=== PATIENT | female | born 1950 | race American Indian/Alaskan Native ===

== ENCOUNTER 2017-03-21 06:40 | Inpatient (IN) | payer MEDICARE ==
[2017-03-14 09:56] LABS: Basophils % (Auto) 0.5 % (0.0-1.8); Eosinophils % (Auto) 5.7 % (0.0-4.3); Hematocrit 40.3 % (30.3-42.9); Hemoglobin 12.9 gm/dl (10.1-14.3); Mean Corpuscular HGB Conc 32 % (30-34); Mean Corpuscular Volume 81 fl (79-97); Platelet Count 163 K/mm3 (140-440); Red Blood Count 4.99 M/mm3 (3.65-5.03); Red Cell Distribution Width 15.4 % (13.2-15.2); White Blood Count 3.3 K/mm3 (4.5-11.0)
--- NOTE | 2017-03-14 10:01 | Anesthesia Consultation ---
Anesthesia Consult and Med Hx Date of service: 03/14/17 - Airway Anesthetic Teeth Evaluation: Good ROM Head & Neck: Adequate Mental/Hyoid Distance: Adequate Mallampati Class: Class II Intubation Access Assessment: Probably Good - Pulmonary Exam CTA: Yes - Cardiac Exam Cardiac Exam: RRR - Pre-Operative Health Status Proposed Anesthetic Plan: General - Pulmonary Hx Smoking: No (chew tobacco. Stopped 3 yrs ago) Hx Asthma: Yes ("no problems in years") Hx Sleep Apnea: No (STAN PRE SCREEN HIGH RISK) - Cardiovascular System Hx Hypertension: Yes (X 10 YRS) - Central Nervous System CVA: Yes (was told she had a mild stroke in . no residuals) Hx Back Pain: Yes (BACK PAIN TO LEFT LEG BURNING) - Endocrine Hx Liver Disease: No Hx Non-Insulin Dependent Diabetes: Yes (no longer on meds) Hx Thyroid Disease: No - Hematic Hx Anemia: Yes (NOT RECENT) - Other Systems Hx Cancer: No Hx Obesity: Yes
[2017-03-14 10:06] LABS: Mean Corpuscular Hemoglobin 26 pg (28-32)
[2017-03-14 10:14] LABS: Alanine Aminotransferase 9 units/L (7-56); Albumin 3.6 g/dL (3.9-5); Albumin/Globulin Ratio 0.9 %; Alkaline Phosphatase 71 units/L (35-129); Anion Gap 17 mmol/L; Blood Urea Nitrogen 8 mg/dL (7-17); Calcium 8.9 mg/dL (8.4-10.2); Carbon Dioxide 26 mmol/L (22-30); Chloride 103.2 mmol/L (98-107); Glucose 99 mg/dL (65-100); Potassium 3.6 mmol/L (3.6-5.0); Sodium 143 mmol/L (137-145); Total Protein 7.4 g/dL (6.3-8.2)
[~2017-03-21 06:40] MED LIST: PEPCID PO NR; VERSED IV NR
[2017-03-21] MEDS ORDERED: ROBINUL ONE ×2 (07:29)
[2017-03-21] MEDS ORDERED: SUBLIMAZE ONE (07:29)
[2017-03-21] MEDS ORDERED: DIPRIVAN 10 MG/ML IV ONE (07:29)
[2017-03-21] MEDS ORDERED: DECADRON ONE (07:29)
[2017-03-21] MEDS ORDERED: ZEMURON IV ONE (07:29)
[2017-03-21] MEDS ORDERED: NEOSTIGMINE ONE (07:29)
[2017-03-21] MEDS ORDERED: ZOFRAN ONE (07:29)
[2017-03-21] MEDS ORDERED: XYLOCAINE MPF 2% ONE (07:29)
--- NOTE | 2017-03-21 07:43 | Anesthesia Day of Surgery ---
Anesthesia Day of Surgery - Day of Surgery Patient Examined: Yes Patient H&P Reviewed: Yes Patient is NPO: Yes
[2017-03-21] MEDS ORDERED: GELFOAM TP ONE ×2 (08:01→09:05)
[2017-03-21] MEDS: NACL 0.9% 1000 ML 1,000 ML IV SCH (08:05)
--- NOTE | 2017-03-21 08:11 | History and Physical Report ---
History of Present Illness Date of examination: 03/21/17 Date of admission: 03/21/17 06:40 Chief complaint: Low back pain, leg pains with activity Past History Past Medical History: hypertension, hyperlipidemia Medications and Allergies Allergies Allergy/AdvReac Type Severity Reaction Status Date / Time ciprofloxacin [From Cipro] Allergy THROAT Verified 03/12/17 14:25 SWELLING ciprofloxacin HCl Allergy THROAT Verified 03/12/17 14:25 [From Cipro] SWELLING codeine Allergy DEPRESSION Verified 03/12/17 14:25 Home Medications Medication Instructions Recorded Confirmed Last Taken Type Diltiazem [CarDIZEM] 120 mg PO DAILY 03/12/17 03/12/17 Unknown History Hydrochlorothiazide [Hctz] 12.5 mg PO QDAY 03/12/17 03/12/17 Unknown History Meloxicam [Mobic] 7.5 mg PO QDAY 03/12/17 03/12/17 Unknown History Omeprazole 40 mg PO DAILY 03/12/17 03/12/17 Unknown History Potassium Chloride [Klor-Con 10] 10 meq PO DAILY 03/12/17 03/12/17 Unknown History Active Meds: Active Medications Cefazolin Sodium (Ancef/Sterile Water 2 Gm/20 Ml) 2 gm IV PREOP NR Famotidine (Pepcid) 20 mg PO PREOP NR Stop: 03/21/17 23:00 Last Admin: 03/21/17 08:05 Dose: 20 mg Sodium Chloride (Nacl 0.9% 1000 Ml) 1,000 mls @ 75 mls/hr IV DIRECT SAMMY Last Admin: 03/21/17 08:05 Dose: 75 mls/hr Midazolam HCl (Versed) 2 mg IV PREOP NR Stop: 03/21/17 23:00 Review of Systems All systems: negative Exam - Constitutional Vitals: Temp Pulse Resp BP Pulse Ox 98.0 F 84 20 150/100 03/14/17 09:30 03/14/17 09:30 03/14/17 09:30 03/14/17 09:30 - Respiratory Respiratory effort: normal, other (reversal of lumbar lordisis, no neurological deficit.) Results - Labs CBC & Chem 7: 03/14/17 09:30 03/14/17 09:30 Assessment and Plan - Patient Problems (1) Lumbar stenosis with neurogenic claudication Current Visit: Yes Status: Chronic Plan to address problem: Decopmpression L3-S1
[2017-03-21] MEDS ORDERED: ANCEF/STERILE WATER 2 GM/20 ML IV NR (09:00)
[2017-03-21] MEDS ORDERED: DILAUDID ONE (09:02)
[2017-03-21] MEDS ORDERED: NACL 0.9% IR ONE (09:05)
--- NOTE | 2017-03-21 09:10 | Admit Criteria Form ---
Admission Criteria Documentation: AMBULATORY SURGERY EXCEPTION CRITERIA Ambulatory Surgery Exception Criteria ( Place 'X' for any and all applicable criteria): Surgery or procedure performed on ambulatory basis may require inpatient stay for[A] ANY ONE of the following(1)(2)(3)(4)(5)(6)(7)(8)(9): [X] I. A preoperative situation, condition, or finding that warrants inpatient stay as indicated by ANY ONE of the following: [] a) Inpatient care needed because of severity of a disease or condition rather than the surgery (eg, severe cardiac or respiratory disease, severe infection) (15) (16 ) (17) (18) [] b) Emergent procedure (eg, angioplasty for acute ischemia)(19) [] c) Complex surgical approach or situation as indicated by ANY ONE of the following(3): [] i) Open approach needed instead of usual endoscopic, transcatheter, or other less invasive procedure [] ii) Difficult approach because of previous operation [] iii) Airway monitoring required after open neck procedures(20)(21) [] iv) Large mass requiring unusually extensive dissection [] v) Additional complicating feature requiring inpatient care (eg, drain management)(22(23): [X] d) Major surgery in a pt with high anesthetic risk as indicated by ANY ONE of the following (2)(3)(5)(7)(8): [X] i) ASA risk class III or higher (severe systemic disease impairing function) [D] [] ii) Advanced age (eg, older than 85 years)(14)(24) [] iii) Symptomatic heart failure(25) [] iv) Symptomatic asthma or COPD(8)(21) [] v) Morbid obesity with hemodynamic or respiratory problems(20)( 21)(26)(27) [] vi) Obstructive sleep apnea(20)(21) [] vii) Former premature infants who are younger than 60 weeks [] viii) High risk for severe postoperative abnormalities (eg, severe postoperative hypocalcemia after parathyroidectomy for severe hyperparathyroidism)(27)( 28) [] ix) Unstable angina(25) [] e) Drug-related risk requiring inpatient stay as indicated by ANY ONE of the following(5)(10)(14)(32)(33) [] i) Procedure requires discontinuing drugs or other therapy (eg , antiarrhythmic medication, antiseizure medication), which necessitates inpatient observation or treatment.(18)(31) [] ii) Major surgery and high risk drug use as indicated by ANY ONE of the following: [] 1) Active abuse of cocaine or similar drug [] 2) Monoamine oxidase inhibitor use [] 3) Other drug identified as posing risk [] f) Inadequate outpatient care situation as indicated by ANY ONE of the following(5)(10)(14)(32)(33) [] i) Patient lives remote from medical facility and procedure has urgent complication potential, and temporary nearby residence cannot be arranged [] ii) Patient will have postprocedure incapacitation and inadequate assistance at home, or alternative level of care cannot be arranged. [] iii) Patient will have long general anesthesia or procedure side effect resolution time, and competent person to stay with patient on first postoperative night at home or alternative level of care cannot be arranged. []iv) Other inadequate outpatient situation that cannot be handled by other means [] II. A perioperative event, condition, or finding that warrants inpatient stay as indicated by ANY ONE of the following (1)(2)(3): [] a) Inadequate physiologic recovery: cardiovascular, respiratory, or hemodynamic status not normal or near preoperative baseline(18) [] b) Hemodynamic instability [] c) Patient not alert with near normal or baseline mental status [] d) Temperature not normal or as expected and not appropriate for outpatient treatment of condition [] e) Ambulatory or appropriate activity level status not yet achieved post procedure [E](34)(35)(36) [] f) Operative site not appropriate (eg, unexpected or excessive drainage or bleeding) [] g) Postoperative effects not resolved or adequately managed (eg, significant pain or vomiting not appropriate for outpatient or next level of care)(10)(12) [] h) Complicating features requiring inpatient care as indicated by ANY ONE of the following(37): [] i) Severe complications of procedure (eg, bowel injury, airway compromise, vascular injury,severe hemorrhage) [] ii) Extensive (eg, dissection far beyond usual scope of procedure ) or prolonged (eg, 120 minutes beyond usual) surgery needed requiring inpatient postoperative care [] iii) Conversion to an open or complex procedure that requires inpatient care (eg, open vs laparoscopic cholecystectomy, abdominal vs vaginal hysterectomy)(38) [] iv) Comorbid condition or test result identified during or post procedure that requires inpatient care (7) [] v) Malignant hyperthermia(30) [] vi) Other complicating feature requiring inpatient care(22)(23) Inpatient stay may be needed until ALL of the following are present (1)(2)(3)(4) (5)(6)(10)(14)(33)(40): []a) Physiologic recovery: cardiovascular, respiratory, and hemodynamic status normal or near preoperative baseline []b) Hemodynamic stability []c) Patient alert, with near normal or baseline mental status []d) Temperature appropriate: patient afebrile or temperature appropriate for outpt treatment of condition []e) Activity level appropriate: ambulatory or appropriate activity level post procedure []f) Operative site appropriate as indicated by ALL of the following: []i) Site dry or with expected drainage []ii) Any blood noted is as expected for procedure. []g) Postoperative effects resolved or managed as indicated by ALL of the following: []i) Pain management appropriate for outpatient (or next level of) care(10) []ii) Minimal nausea and vomiting: if present, successfully treated with oral medication(12) []iii) Headache, dizziness, or drowsiness (if present) are mild. []h) Voiding status acceptable as indicated by ANY ONE of the following: []i) Voiding spontaneously []ii) No voiding but instructions given for follow-up in 6 to 8 hours []iii) Urinary catheter in place, and instructions given for follow-up []i) Complicating features requiring inpatient care manageable at a lower level of care(37) []j) Comorbid conditions manageable at a lower level of care(37) The original [employer] content created by [employer] has been revised. The portions of the content which have been revised are identified through the use of italic text or in bold, and [facility] [employer] has neither reviewed nor approved the modified material. All other unmodified content is copyright [employer]. Please see references footnoted in the original [employer] edition 2016 Admission Criteria Met: Yes
[2017-03-21] MEDS ORDERED: NACL 0.9% 100 ML ONE (09:48)
[2017-03-21] MEDS ORDERED: NEO SYNEPHRINE ONE (09:48)
[2017-03-21] MEDS ORDERED: TORADOL ONE (09:50)
[2017-03-21] MEDS ORDERED: NACL ONE (09:50)
[2017-03-21] MEDS ORDERED: DEPO-MEDROL ONE (09:50)
[2017-03-21] MEDS ORDERED: MORPHINE ONE (09:51)
[2017-03-21] MEDS ORDERED: MARCAINE-EPI/PF 0.25%-1:200,000 INFILTRATI ONE ×2 (09:52→10:03)
--- NOTE | 2017-03-21 10:02 | Procedure Note ---
Date of procedure: 03/21/17 Pre-op diagnosis: lumbar spondylosis/ stenosis Post-op diagnosis: same Procedure: Decompressive laminectomy/ foraminotomies bilateral, L3-S1 Anesthesia: AMELIAA Surgeon: DONNA ROJAS Estimated blood loss: other (200 ml) Pathology: none Condition: stable Disposition: PACU
[2017-03-21] MEDS ORDERED: MORPHINE IM ONE (10:03)
[2017-03-21] MEDS ORDERED: TORADOL IV ONE (10:03)
[2017-03-21] MEDS ORDERED: DEPO-MEDROL INTRA-ARTI ONE (10:03)
[2017-03-21] MEDS ORDERED: DILAUDID IV PRN (10:32)
[2017-03-21] MEDS ORDERED: ZOFRAN IV PRN (10:32)
[2017-03-21] MEDS ORDERED: PERCOCET 5/325 PO PRN ×2 (11:10→11:12)
[2017-03-21] MEDS ORDERED: AMBIEN PO PRN (11:12)
[2017-03-21] MEDS ORDERED: PHENERGAN PR PRN (11:12)
[2017-03-21] MEDS ORDERED: ANCEF/NS 1 GM/50 ML 1 GM/50 ML BAG IV SCH (11:12)
[2017-03-21] MEDS ORDERED: MILK OF MAGNESIA PO PRN (11:12)
[2017-03-21] MEDS ORDERED: MORPHINE IV PRN (11:12)
--- NOTE | 2017-03-21 11:14 | XRay Report ---
LUMBAR SPINE, LATERAL VIEW History: Back pain, spondylosis. Findings: A single lateral fluoroscopic spot image was obtained of the lower lumbar spine prior to surgery. A metallic pointer has been placed at the level of L5. Mild to moderate spondylosis is noted. Impression: Lumbar spondylosis.
--- NOTE | 2017-03-21 11:15 | XRay Report ---
LUMBAR SPINE, ONE VIEW History: Spondylosis. Findings: 2 lateral fluoroscopic images of the lumbar spine were obtained during surgery. Laminectomy changes were performed by Dr. Gibbons from L3-S1. Please correlate with the procedural report. Impression: Spondylosis. Surgical changes as described.
[2017-03-21] MEDS: ZOFRAN IV PRN ×2 (13:07→21:30)
[2017-03-21] MEDS: K-DUR PO SCH (13:07)
[2017-03-21] MEDS: PROTONIX PO SCH (14:53)
[2017-03-21] MEDS: ANCEF/NS 1 GM/50 ML 1 GM/50 ML BAG IV SCH (16:50)
[2017-03-21] MEDS: COLACE PO SCH (22:00)
[2017-03-21] MEDS: TORADOL IV PRN (22:24)
[2017-03-22] MEDS: ANCEF/NS 1 GM/50 ML 1 GM/50 ML BAG IV SCH (00:48)
[2017-03-22] MEDS: TORADOL IV PRN ×3 (05:21→22:48)
--- NOTE | 2017-03-22 05:45 | Consultation ---
History of Present Illness - Reason for Consult Consult date: 03/21/17 Requesting physician: DONNA ROJAS - History of Present Illness 67 YO Female with HTN, CVA, Obesity, Lumbar Stenosis admitted for Lumbar decompression. Pt denies fever, chills, CP, Palpitation, NVD, or recent ill contacts. Pt seen and evaluated. Consult placed for management of HTN. Past History Past Medical History: hypertension, hyperlipidemia Past Surgical History: Other (Lumbar Decompression) Social history: single. denies: smoking, alcohol abuse, prescription drug abuse Family history: diabetes, hypertension Medications and Allergies Allergies Allergy/AdvReac Type Severity Reaction Status Date / Time ciprofloxacin [From Cipro] Allergy THROAT Verified 03/12/17 14:25 SWELLING ciprofloxacin HCl Allergy THROAT Verified 03/12/17 14:25 [From Cipro] SWELLING codeine Allergy DEPRESSION Verified 03/12/17 14:25 Home Medications Medication Instructions Recorded Confirmed Last Taken Type Diltiazem [CarDIZEM] 120 mg PO DAILY 03/12/17 03/12/17 03/20/17 History Hydrochlorothiazide [Hctz] 12.5 mg PO QDAY 03/12/17 03/12/17 03/20/17 History Meloxicam [Mobic] 7.5 mg PO QDAY 03/12/17 03/12/17 03/20/17 History Omeprazole 40 mg PO DAILY 03/12/17 03/12/17 03/20/17 History Potassium Chloride [Klor-Con 10] 10 meq PO DAILY 03/12/17 03/12/17 03/20/17 History Active Meds: Active Medications Acetaminophen (Tylenol) 650 mg PO Q6H PRN PRN Reason: Pain MILD(1-3)/Fever> 100.5/GARCIA Cyclobenzaprine HCl (Flexeril) 10 mg PO Q8H PRN PRN Reason: Muscle Spasm Diltiazem HCl (Cardizem) 120 mg PO DAILY SAMMY Docusate Sodium (Colace) 100 mg PO BID SAMMY Last Admin: 03/21/17 22:00 Dose: Not Given Hydrochlorothiazide (Hctz) 12.5 mg PO QDAY SAMMY Hydromorphone HCl (Dilaudid) 0.5 mg IV Q10MIN PRN PRN Reason: Pain , Severe (7-10) Stop: 03/24/17 10:33 Sodium Chloride (Nacl 0.9% 1000 Ml) 1,000 mls @ 75 mls/hr IV DIRECT [facility] Last Admin: 03/21/17 08:05 Dose: 75 mls/hr Ketorolac Tromethamine (Toradol) 30 mg IV Q6H PRN PRN Reason: Pain, Mild (1-3) Stop: 03/26/17 11:11 Last Admin: 03/22/17 05:21 Dose: 30 mg Magnesium Hydroxide (Milk Of Magnesia) 30 ml PO Q4H PRN PRN Reason: Constipation Morphine Sulfate (Morphine) 2 mg IV Q4H PRN PRN Reason: Pain , Severe (7-10) Last Admin: 03/21/17 14:56 Dose: 2 mg Ondansetron HCl (Zofran) 4 mg IV Q8H PRN PRN Reason: Nausea And Vomiting Last Admin: 03/21/17 21:30 Dose: 4 mg Oxycodone/Acetaminophen (Percocet 5/325) 1 tab PO Q6H PRN PRN Reason: Pain, Moderate (4-6) Pantoprazole Sodium (Protonix) 40 mg PO DAILY [facility] Last Admin: 03/21/17 14:53 Dose: Not Given Potassium Chloride (K-Dur) 10 meq PO QDAY [facility] Last Admin: 03/21/17 13:07 Dose: 10 meq Promethazine HCl (Phenergan) 25 mg NC Q6H PRN PRN Reason: Nausea And Vomiting Zolpidem Tartrate (Ambien) 5 mg PO QHS PRN PRN Reason: Sleep Review of Systems All systems: negative Constitutional: other (nausea) Exam - Constitutional Vitals: Temp Pulse Resp BP Pulse Ox 98.4 F 71 18 102/62 97 03/22/17 04:49 03/22/17 04:49 03/22/17 04:49 03/22/17 04:49 03/22/17 04:49 General appearance: Present: mild distress, obese - EENT Eyes: Present: PERRL ENT: hearing intact, clear oral mucosa - Neck Neck: Present: supple, normal ROM - Respiratory Respiratory effort: normal Respiratory: bilateral: CTA - Cardiovascular Heart Sounds: Present: S1 & S2. Absent: rub, click - Extremities Extremities: pulses symmetrical, No edema Peripheral Pulses: within normal limits - Abdominal General gastrointestinal: Present: soft, non-tender, non-distended, normal bowel sounds Female genitourinary: Present: normal - Integumentary Integumentary: Present: clear, warm, dry - Musculoskeletal Musculoskeletal: gait normal, strength equal bilaterally - Psychiatric Psychiatric: appropriate mood/affect, intact judgment & insight - Neurologic Neurologic: CNII-XII intact, moves all extremities Results - Labs CBC & Chem 7: 03/14/17 09:30 03/14/17 09:30 Labs: Abnormal lab results 03/21/17 Range/Units 10:24 POC Glucose 153 H (70-105) Assessment and Plan - Patient Problems (1) HTN (hypertension) Current Visit: Yes Status: Acute Qualifiers: Hypertension type: H Plan to address problem: Monitor BP q shift, hydralazine prn for systolic above 145, resume home medication as patient is able to tolerate oral diet. (2) Obesity (BMI 30.0-34.9) Current Visit: Yes Status: Acute Plan to address problem: Pt counseled (3) DVT prophylaxis Current Visit: Yes Status: Acute Plan to address problem: per primary team (4) Lumbar stenosis with neurogenic claudication Current Visit: Yes Status: Chronic Plan to address problem: S/P surgical intervention as per primary team.
[2017-03-22] MEDS: NACL 0.9% 1000 ML 1,000 ML IV SCH ×2 (05:57→19:54)
[2017-03-22] MEDS: ZOFRAN IV PRN (05:58)
--- NOTE | 2017-03-22 07:54 | Query- Nutrition ---
Stew Harden Andrea Date:____03/22/17 Family Advocate/CDS:____Simone Carlaesejohnnie Phone#:____[phone] Exercise your independent professional judgment when responding to query. Questions asked do not imply a particular answer is desired or expected. We greatly appreciate your clarification on this issue. Clinical Documentation States: 67 year old female was admitted on 03/21/17 The Consult note states " History of Present Illness 67 YO Female with HTN, CVA, Obesity, Lumbar Stenosis admitted for Lumbar decompression. Pt denies fever, chills, CP, Palpitation, NVD, or recent ill contacts. Pt seen and evaluated. Consult placed for management of HTN. " Clinical Findings Show: Albumin: 3.6 Please select the most appropriate option 3 [] Mild Malnutrition [x] Mild - Moderate Malnutrition [] Moderate - Severe Malnutrition [] Severe Malnutrition Serum Albumin 2.8 to 3.4 g/dl or Pre-albumin 5 to 17 mg/dl1,2 Inadequate nutritional intake1,2,3,4 NPO > 5 days Weight loss: 5% in 1 month or 7.5% in 3 months or 10% in 6 months1, 3,4 BMI 16 to 18.4 or Weight <90% of ideal body weight1,2,3,4 Serum Albumin < 2.8 g/ dl1,2 Lymphocytes < 1500/ L2 Inadequate nutritional intake3, high stress e.g. major trauma, sepsis,pancreatitis, becker etc. Decubitus ulcers1,2, , skin breakdown2, easy hair pluckability2 Weight <80% standard for height2 Triceps skin fold <3 mm2 Mid-arm muscle circumference <15 cm2 Creatinine-height index <60% standard2 [ ] Cachexia [ ] Emaciated w/Malnutrition [ ] Other: [ ] Unable to determine [ ] Comment/Explanation: Present on Admission: [ x] Yes (Y) [ ] Clinically undeterminable (W) [ ] No (N) Please also document response in your Progress Notes and/or Discharge Summary and indicate if the condition was present on admission. MTDD
--- NOTE | 2017-03-22 08:21 | Progress Note ---
<RASHAADPIPO - Last Filed: 03/23/17 13:32> Assessment and Plan Assessment and plan: 1. S/P Decompressive laminectomy/ foraminotomies bilateral, L3-S1 Patient Post operatively is a stable Pain controlled with Tramadol Physical therapy consulted 2. Headache A CSF leak suspected, patient advised to keep head down with bathroom privilege Orthopedic alerted to come and examine patient 3.Hypertension Continue on home antihypertensive medicine 3. DVT prophylaxis Lovenox Patient full code History Interval history: Patient complaining posterior occipital headache. She rated her pain level 7/ 10. She denies fever or chills Hospitalist Physical - Constitutional Vitals: Temp Pulse Resp BP Pulse Ox 98.4 F 71 18 102/62 97 03/22/17 04:49 03/22/17 04:49 03/22/17 04:49 03/22/17 04:49 03/22/17 04:49 General appearance: Present: mild distress, obese - EENT Eyes: Present: PERRL - Neck Neck: Present: supple, other (lumbar surgery to L3-s1) - Respiratory Respiratory effort: normal - Cardiovascular Heart rate: 65 Rhythm: regular - Extremities Extremities: no ischemia Peripheral Pulses: within normal limits - Abdominal General gastrointestinal: soft, non-tender - Integumentary Integumentary: Present: clear, warm - Psychiatric Psychiatric: appropriate mood/affect - Neurologic Neurologic: CNII-XII intact, other (moves extremities with pain due to back surgery ) - Allied Health Allied health notes reviewed: nursing Results - Labs CBC & Chem 7: 03/22/17 09:31 03/22/17 09:31 Labs: Laboratory Last Values WBC 3.3 K/mm3 (4.5-11.0) L 03/14/17 09:30 RBC 4.99 M/mm3 (3.65-5.03) 03/14/17 09:30 Hgb 12.9 gm/dl (10.1-14.3) 03/14/17 09:30 Hct 40.3 % (30.3-42.9) 03/14/17 09:30 MCV 81 fl (79-97) 03/14/17 09:30 MCH 26 pg (28-32) L 03/14/17 09:30 MCHC 32 % (30-34) 03/14/17 09:30 RDW 15.4 % (13.2-15.2) H 03/14/17 09:30 Plt Count 163 K/mm3 (140-440) 03/14/17 09:30 Lymph % (Auto) 41.2 % (13.4-35.0) H 03/14/17 09:30 Blair % (Auto) 10.0 % (0.0-7.3) H 03/14/17 09:30 Eos % (Auto) 5.7 % (0.0-4.3) H 03/14/17 09:30 Baso % (Auto) 0.5 % (0.0-1.8) 03/14/17 09:30 Lymph # 1.4 K/mm3 (1.2-5.4) 03/14/17 09:30 Blair # 0.3 K/mm3 (0.0-0.8) 03/14/17 09:30 Eos # 0.2 K/mm3 (0.0-0.4) 03/14/17 09:30 Baso # 0.0 K/mm3 (0.0-0.1) 03/14/17 09:30 Seg Neutrophils % 42.6 % (40.0-70.0) 03/14/17 09:30 Seg Neutrophils # 1.4 K/mm3 (1.8-7.7) L 03/14/17 09:30 Sodium 143 mmol/L (137-145) 03/14/17 09:30 Potassium 3.6 mmol/L (3.6-5.0) 03/14/17 09:30 Chloride 103.2 mmol/L (98-107) 03/14/17 09:30 Carbon Dioxide 26 mmol/L (22-30) 03/14/17 09:30 Anion Gap 17 mmol/L 03/14/17 09:30 BUN 8 mg/dL (7-17) 03/14/17 09:30 Creatinine 1.0 mg/dL (0.7-1.2) 03/14/17 09:30 Estimated GFR > 60 ml/min 03/14/17 09:30 BUN/Creatinine Ratio 8.00 % 03/14/17 09:30 Glucose 99 mg/dL (65-100) 03/14/17 09:30 POC Glucose 153 (70-105) H 03/21/17 10:24 Calcium 8.9 mg/dL (8.4-10.2) 03/14/17 09:30 Total Bilirubin 0.30 mg/dL (0.1-1.2) 03/14/17 09:30 AST 17 units/L (5-40) 03/14/17 09:30 ALT 9 units/L (7-56) 03/14/17 09:30 Alkaline Phosphatase 71 units/L (35-129) 03/14/17 09:30 Total Protein 7.4 g/dL (6.3-8.2) 03/14/17 09:30 Albumin 3.6 g/dL (3.9-5) L 03/14/17 09:30 Albumin/Globulin Ratio 0.9 % 03/14/17 09:30 Blood Type A POSITIVE 03/21/17 07:35 Antibody Screen TNR 03/21/17 07:35 KATHERINE Antibody Screen Negative 03/21/17 07:35 <JENIFFER LARA M - Last Filed: 03/23/17 13:43> Assessment and Plan Assessment and plan: I saw and evaluated the patient. I reviewed the Nurse Practionerss note and agree witht the assessment and plan with the following additions/corrections. CSF leak- patch was placed by Orthopedic surgery -ortho called back to re-evaluate pt, activity now is BRP -keep head down. -patient has been hypotensive, therefore will hold BP meds for now, and monitor BP closely History Interval history: GARCIA only present when she lifts her head up Hospitalist Physical - Physical exam Narrative exam: serous leakage from surgical site on lumbar spine - Constitutional Vitals: Temp Pulse Resp BP Pulse Ox 98.2 F 65 20 106/65 97 03/22/17 08:00 03/22/17 08:00 03/22/17 08:00 03/22/17 08:00 03/22/17 04:49 Results - Labs CBC & Chem 7: 03/22/17 09:31 03/22/17 09:31 Labs: Laboratory Last Values WBC 11.2 K/mm3 (4.5-11.0) H 03/22/17 09:31 RBC 4.31 M/mm3 (3.65-5.03) 03/22/17 09:31 Hgb 10.8 gm/dl (10.1-14.3) 03/22/17 09:31 Hct 34.8 % (30.3-42.9) 03/22/17 09:31 MCV 81 fl (79-97) 03/22/17 09:31 MCH 25 pg (28-32) L 03/22/17 09:31 MCHC 31 % (30-34) 03/22/17 09:31 RDW 15.3 % (13.2-15.2) H 03/22/17 09:31 Plt Count 138 K/mm3 (140-440) L 03/22/17 09:31 Lymph % (Auto) 41.2 % (13.4-35.0) H 03/14/17 09:30 Blair % (Auto) 10.0 % (0.0-7.3) H 03/14/17 09:30 Eos % (Auto) 5.7 % (0.0-4.3) H 03/14/17 09:30 Baso % (Auto) 0.5 % (0.0-1.8) 03/14/17 09:30 Lymph # 1.4 K/mm3 (1.2-5.4) 03/14/17 09:30 Blair # 0.3 K/mm3 (0.0-0.8) 03/14/17 09:30 Eos # 0.2 K/mm3 (0.0-0.4) 03/14/17 09:30 Baso # 0.0 K/mm3 (0.0-0.1) 03/14/17 09:30 Seg Neutrophils % 42.6 % (40.0-70.0) 03/14/17 09:30 Seg Neutrophils # 1.4 K/mm3 (1.8-7.7) L 03/14/17 09:30 Sodium 142 mmol/L (137-145) 03/22/17 09:31 Potassium 3.3 mmol/L (3.6-5.0) L 03/22/17 09:31 Chloride 103.6 mmol/L (98-107) 03/22/17 09:31 Carbon Dioxide 28 mmol/L (22-30) 03/22/17 09:31 Anion Gap 14 mmol/L 03/22/17 09:31 BUN 7 mg/dL (7-17) 07/06/17 09:31 Creatinine 0.9 mg/dL (0.7-1.2) 03/22/17 09:31 Estimated GFR > 60 ml/min 03/22/17 09:31 BUN/Creatinine Ratio 7.77 % 03/22/17 09:31 Glucose 123 mg/dL (65-100) H 03/22/17 09:31 POC Glucose 153 (70-105) H 03/21/17 10:24 Calcium 8.6 mg/dL (8.4-10.2) 03/22/17 09:31 Total Bilirubin 0.30 mg/dL (0.1-1.2) 03/14/17 09:30 AST 17 units/L (5-40) 03/14/17 09:30 ALT 9 units/L (7-56) 03/14/17 09:30 Alkaline Phosphatase 71 units/L (35-129) 03/14/17 09:30 Total Protein 7.4 g/dL (6.3-8.2) 03/14/17 09:30 Albumin 3.6 g/dL (3.9-5) L 03/14/17 09:30 Albumin/Globulin Ratio 0.9 % 03/14/17 09:30 Blood Type A POSITIVE 03/21/17 07:35 Antibody Screen TNR 03/21/17 07:35 KATHERINE Antibody Screen Negative 03/21/17 07:35
[2017-03-22] MEDS: K-DUR PO SCH (09:50)
[2017-03-22] MEDS: COLACE PO SCH ×2 (09:50→22:40)
[2017-03-22] MEDS: TYLENOL PO PRN ×2 (09:50→22:49)
[2017-03-22] MEDS ORDERED: CARDIZEM PO SCH (10:00)
[2017-03-22] MEDS ORDERED: NON-FORMULARY (Potassium Chloride [Klor-Con 10] 10 MEQ) PO SCH (10:00)
[2017-03-22] MEDS ORDERED: NON-FORMULARY (Omeprazole [Omeprazole] 40 MG) PO SCH (10:00)
[2017-03-22] MEDS ORDERED: PROTONIX PO SCH (10:00)
[2017-03-22] MEDS ORDERED: HCTZ PO SCH (10:00)
[2017-03-22 10:06] LABS: Anion Gap 14 mmol/L; BUN/Creatinine Ratio 7.77; Blood Urea Nitrogen 7 mg/dL (7-17); Calcium 8.6 mg/dL (8.4-10.2); Carbon Dioxide 28 mmol/L (22-30); Chloride 103.6 mmol/L (98-107); Glucose 123 mg/dL (65-100); Potassium 3.3 mmol/L (3.6-5.0); Sodium 142 mmol/L (137-145)
[2017-03-22 10:10] LABS: Hematocrit 34.8 % (30.3-42.9); Hemoglobin 10.8 gm/dl (10.1-14.3); Mean Corpuscular HGB Conc 31 % (30-34); Mean Corpuscular Volume 81 fl (79-97); Platelet Count 138 K/mm3 (140-440); Red Blood Count 4.31 M/mm3 (3.65-5.03); Red Cell Distribution Width 15.3 % (13.2-15.2); White Blood Count 11.2 K/mm3 (4.5-11.0)
[2017-03-22 10:23] LABS: Mean Corpuscular Hemoglobin 25 pg (28-32)
[2017-03-22] MEDS ORDERED: K-DUR PO NR (10:30)
--- NOTE | 2017-03-22 17:17 | Progress Note ---
Assessment and Plan - Patient Problems (1) Lumbar stenosis with neurogenic claudication Current Visit: Yes Status: Chronic (2) S/P laminectomy Current Visit: Yes Status: Acute Plan to address problem: continue with IV fluids, bed rest/ BRP. dural tear (2 mm) repaired, treat symptomatically. plan D/c tomorrow, if wound is dry, headache is controlled. Subjective Date of service: 03/22/17 Principal diagnosis: s/p laminectomy Interval history: c/o headache, (had a small dural tear , repaired) No leg pains, neuro deficits. . Objective Vital signs: Vital Signs - 12hr 03/22/17 08:00 Temperature 98.2 F Pulse Rate [ 65 Left] Respiratory 20 Rate Blood Pressure 106/65 [Left Arm] - Labs CBC & BMP: 03/22/17 09:31 03/22/17 09:31 Labs: Abnormal lab results 03/22/17 03/22/17 Range/Units 09:31 09:31 WBC 11.2 H (4.5-11.0) K/mm3 MCH 25 L (28-32) pg RDW 15.3 H (13.2-15.2) % Plt Count 138 L (140-440) K/mm3 Potassium 3.3 L (3.6-5.0) mmol/L Glucose 123 H (65-100) mg/dL
[2017-03-22] MEDS: PROTONIX PO SCH (19:38)
[2017-03-23] MEDS: TYLENOL PO PRN ×2 (08:18→18:17)
[2017-03-23] MEDS: TORADOL IV PRN ×2 (08:18→18:16)
--- NOTE | 2017-03-23 08:35 | Progress Note ---
<PIPO NEIL - Last Filed: 03/23/17 13:40> Assessment and Plan Assessment and plan: Assessment and plan: 1. S/P Decompressive laminectomy/ foraminotomies bilateral, L3-S1 Patient Post operatively is a stable Pain controlled with Tramadol Physical therapy consulted 2. Headache Patient headache improved Patient might go home tomorrow if she cleared by Orthopedic Dr. Gibbons 3.Hypertension Continue on home antihypertensive medicine 4. DVT prophylaxis Lovenox Patient full code History Interval history: Patient complaining an occipital headache while trying to get up. She rated her pain level 4/10. Hospitalist Physical - Constitutional Vitals: Temp Pulse Resp BP Pulse Ox 98.6 F 71 18 111/65 94 03/23/17 05:03 03/23/17 05:03 03/23/17 05:03 03/23/17 05:03 03/23/17 05:03 General appearance: Present: mild distress, obese - EENT Eyes: Present: PERRL ENT: hearing intact - Neck Neck: Present: supple - Respiratory Respiratory effort: normal Respiratory: bilateral: CTA - Cardiovascular Heart rate: 67 Rhythm: regular Heart Sounds: Present: S1 & S2 - Extremities Extremities: no ischemia Peripheral Pulses: within normal limits - Abdominal General gastrointestinal: soft, non-tender - Integumentary Integumentary: Present: clear (back surgery with gauze dressing. Dressing C/I/D. ) - Psychiatric Psychiatric: appropriate mood/affect - Neurologic Neurologic: moves all extremities (with mild pain) - Allied Health Allied health notes reviewed: nursing Results - Labs CBC & Chem 7: 03/22/17 09:31 03/22/17 09:31 Labs: Laboratory Last Values WBC 11.2 K/mm3 (4.5-11.0) H 03/22/17 09:31 RBC 4.31 M/mm3 (3.65-5.03) 03/22/17 09:31 Hgb 10.8 gm/dl (10.1-14.3) 03/22/17 09:31 Hct 34.8 % (30.3-42.9) 03/22/17 09:31 MCV 81 fl (79-97) 03/22/17 09:31 MCH 25 pg (28-32) L 03/22/17 09:31 MCHC 31 % (30-34) 03/22/17 09:31 RDW 15.3 % (13.2-15.2) H 03/22/17 09:31 Plt Count 138 K/mm3 (140-440) L 03/22/17 09:31 Lymph % (Auto) 41.2 % (13.4-35.0) H 03/14/17 09:30 [place] % (Auto) 10.0 % (0.0-7.3) H 03/14/17 09:30 Eos % (Auto) 5.7 % (0.0-4.3) H 03/14/17 09:30 Baso % (Auto) 0.5 % (0.0-1.8) 03/14/17 09:30 Lymph # 1.4 K/mm3 (1.2-5.4) 03/14/17 09:30 [place] # 0.3 K/mm3 (0.0-0.8) 03/14/17 09:30 Eos # 0.2 K/mm3 (0.0-0.4) 03/14/17 09:30 Baso # 0.0 K/mm3 (0.0-0.1) 03/14/17 09:30 Seg Neutrophils % 42.6 % (40.0-70.0) 03/14/17 09:30 Seg Neutrophils # 1.4 K/mm3 (1.8-7.7) L 03/14/17 09:30 Sodium 142 mmol/L (137-145) 03/22/17 09:31 Potassium 3.3 mmol/L (3.6-5.0) L 03/22/17 09:31 Chloride 103.6 mmol/L (98-107) 03/22/17 09:31 Carbon Dioxide 28 mmol/L (22-30) 03/22/17 09:31 Anion Gap 14 mmol/L 03/22/17 09:31 BUN 7 mg/dL (7-17) 03/22/17 09:31 Creatinine 0.9 mg/dL (0.7-1.2) 03/22/17 09:31 Estimated GFR > 60 ml/min 03/22/17 09:31 BUN/Creatinine Ratio 7.77 % 03/22/17 09:31 Glucose 123 mg/dL (65-100) H 03/22/17 09:31 POC Glucose 153 (70-105) H 03/21/17 10:24 Calcium 8.6 mg/dL (8.4-10.2) 03/22/17 09:31 Total Bilirubin 0.30 mg/dL (0.1-1.2) 03/14/17 09:30 AST 17 units/L (5-40) 03/14/17 09:30 ALT 9 units/L (7-56) 03/14/17 09:30 Alkaline Phosphatase 71 units/L (35-129) 03/14/17 09:30 Total Protein 7.4 g/dL (6.3-8.2) 03/14/17 09:30 Albumin 3.6 g/dL (3.9-5) L 03/14/17 09:30 Albumin/Globulin Ratio 0.9 % 03/14/17 09:30 Blood Type A POSITIVE 03/21/17 07:35 Antibody Screen TNR 03/21/17 07:35 KATHERINE Antibody Screen Negative 03/21/17 07:35 <JENIFFER LARA M - Last Filed: 03/23/17 13:44> Assessment and Plan Assessment and plan: I saw and evaluated the patient. I reviewed the Nurse Practionerss note and agree with the assessment and plan with the following additions/corrections. CSF leak- patch was placed by Orthopedic surgery -ortho called back to re-evaluate pt, activity now is BRP -keep head down. -patient has been hypotensive, therefore will hold BP meds for now, and monitor BP closely Hospitalist Physical - Constitutional Vitals: Temp Pulse Resp BP Pulse Ox 99.7 F H 69 18 120/67 93 03/23/17 07:35 03/23/17 07:35 03/23/17 07:35 03/23/17 07:35 03/23/17 07:35 Results - Labs CBC & Chem 7: 03/22/17 09:31 03/22/17 09:31 Labs: Laboratory Last Values WBC 11.2 K/mm3 (4.5-11.0) H 03/22/17 09:31 RBC 4.31 M/mm3 (3.65-5.03) 03/22/17 09:31 Hgb 10.8 gm/dl (10.1-14.3) 03/22/17 09:31 Hct 34.8 % (30.3-42.9) 03/22/17 09:31 MCV 81 fl (79-97) 03/22/17 09:31 MCH 25 pg (28-32) L 03/22/17 09:31 MCHC 31 % (30-34) 03/22/17 09:31 RDW 15.3 % (13.2-15.2) H 03/22/17 09:31 Plt Count 138 K/mm3 (140-440) L 03/22/17 09:31 Lymph % (Auto) 41.2 % (13.4-35.0) H 03/14/17 09:30 [place] % (Auto) 10.0 % (0.0-7.3) H 03/14/17 09:30 Eos % (Auto) 5.7 % (0.0-4.3) H 03/14/17 09:30 Baso % (Auto) 0.5 % (0.0-1.8) 03/14/17 09:30 Lymph # 1.4 K/mm3 (1.2-5.4) 03/14/17 09:30 [place] # 0.3 K/mm3 (0.0-0.8) 03/14/17 09:30 Eos # 0.2 K/mm3 (0.0-0.4) 03/14/17 09:30 Baso # 0.0 K/mm3 (0.0-0.1) 03/14/17 09:30 Seg Neutrophils % 42.6 % (40.0-70.0) 03/14/17 09:30 Seg Neutrophils # 1.4 K/mm3 (1.8-7.7) L 03/14/17 09:30 Sodium 142 mmol/L (137-145) 03/22/17 09:31 Potassium 3.3 mmol/L (3.6-5.0) L 03/22/17 09:31 Chloride 103.6 mmol/L (98-107) 03/22/17 09:31 Carbon Dioxide 28 mmol/L (22-30) 03/22/17 09:31 Anion Gap 14 mmol/L 03/22/17 09:31 BUN 7 mg/dL (7-17) 03/22/17 09:31 Creatinine 0.9 mg/dL (0.7-1.2) 03/22/17 09:31 Estimated GFR > 60 ml/min 03/22/17 09:31 BUN/Creatinine Ratio 7.77 % 03/22/17 09:31 Glucose 123 mg/dL (65-100) H 03/22/17 09:31 POC Glucose 153 (70-105) H 03/21/17 10:24 Calcium 8.6 mg/dL (8.4-10.2) 03/22/17 09:31 Total Bilirubin 0.30 mg/dL (0.1-1.2) 03/14/17 09:30 AST 17 units/L (5-40) 03/14/17 09:30 ALT 9 units/L (7-56) 03/14/17 09:30 Alkaline Phosphatase 71 units/L (35-129) 03/14/17 09:30 Total Protein 7.4 g/dL (6.3-8.2) 03/14/17 09:30 Albumin 3.6 g/dL (3.9-5) L 03/14/17 09:30 Albumin/Globulin Ratio 0.9 % 03/14/17 09:30 Blood Type A POSITIVE 03/21/17 07:35 Antibody Screen TNR 03/21/17 07:35 KATHERINE Antibody Screen Negative 03/21/17 07:35
[2017-03-23] MEDS: NACL 0.9% 1000 ML 1,000 ML IV SCH ×2 (08:58→21:39)
[2017-03-23] MEDS: FLEXERIL PO PRN ×2 (08:59→18:17)
[2017-03-23] MEDS: COLACE PO SCH ×2 (10:27→21:39)
[2017-03-23] MEDS: K-DUR PO SCH (10:27)
[2017-03-23] MEDS: PROTONIX PO SCH (10:28)
--- NOTE | 2017-03-23 13:25 | Discharge Summary ---
Providers - Providers Date of Admission: 03/21/17 06:40 Date of discharge: 03/24/17 Attending physician: DONNA ROJAS 03/21/17 11:12 Consult to Case Management [CONS] Routine Services Needed at Discharge: Money Room Teller Notified:: [employer] Consult to Physician [CONS] Routine Consulting Provider: MARY PALUMBO Reason For Exam: med management Place consult to:: HOSPITALIST Notified:: DR. PALUMBO Phone number called:: [phone] Was contact made?: Yes If yes, spoke with:: DR. PALUMBO Time called:: 18:24 Comment:: CONSULT COMPLETED - [facility] Physical Therapy Evaluation and Treat [CONS] Routine Comment: Reason For Exam: post op laminectomy Primary care physician: MARY DIAZ Hospitalization Reason for admission: Lumbar stenosis with claudication Condition: Stable Procedures: Decompressive laminectomy, discetomy L3-S1, with bilateral foraminotomy Hospital course: un eventful, intra operative dural tear, repaired Disposition: DC- TO HOME OR SELFCARE - Discharge Diagnoses (1) Lumbar stenosis with neurogenic claudication Status: Chronic (2) S/P laminectomy Status: Acute Core Measure Documentation - Palliative Care Palliative Care/ Comfort Measures: Not Applicable - Core Measures Any of the following diagnoses?: none Exam - Constitutional Vitals: Temp Pulse Resp BP Pulse Ox 99.7 F H 69 18 120/67 93 03/23/17 07:35 03/23/17 07:35 03/23/17 07:35 03/23/17 07:35 03/23/17 07:35 Plan Activity: advance as tolerated, no driving until cleared by PCP, other Weight Bearing Status: Full Weight Bearing Diet: regular Wound: per your surgeon's advice Follow up with: MARY DIAZ MD [Primary Care Provider] - 7 Days DONNA ROJAS MD [Staff Physician] - 7 Days
--- NOTE | 2017-03-23 13:26 | Progress Note ---
Assessment and Plan - Patient Problems (1) S/P laminectomy Current Visit: Yes Status: Acute Plan to address problem: continue with IV fluids, bed rest/ BRP. dural tear (2 mm) repaired, treat symptomatically. plan D/c tomorrow, if wound is dry, headache is controlled. Subjective Principal diagnosis: s/p laminectomy Interval history: c/o headache, (had a small dural tear , repaired) No leg pains, neuro deficits. . head ache improved, dressings/ wound dry Objective Vital signs: Vital Signs - 12hr 03/23/17 03/23/17 05:03 07:35 Temperature 98.6 F 99.7 F H Pulse Rate [ 71 69 Apical] Pulse Rate [ 71 69 Left] Respiratory 18 18 Rate Blood Pressure 111/65 120/67 [Left Arm] O2 Sat by Pulse 94 93 Oximetry - Labs CBC & BMP: 03/22/17 09:31 03/22/17 09:31
[2017-03-24 08:03] VITALS: BP 106/63
[2017-03-24] MEDS: COLACE PO SCH (09:36)
[2017-03-24] MEDS: K-DUR PO SCH (09:36)
[2017-03-24] MEDS: PROTONIX PO SCH (09:37)
[2017-03-24] MEDS: FLEXERIL PO PRN (09:39)
--- NOTE | 2017-04-09 07:50 | Query- Outcome Clarification ---
Stew Harden___Edwige Date:__04/09/17 Licensed Professional Counselor/CDS:__Handy/ Simone Phone#:___[phone] Exercise your independent professional judgment when responding to this query. Questions asked do not imply a particular answer is desired or expected. We greatly appreciate your clarification on this issue. Clinical Documentation States: 67 year old female was admitted on 03/21/17. The discharge summary states " Discharge Diagnoses (1) Lumbar stenosis with neurogenic claudication Status: Chronic Procedures: Decompressive laminectomy, discetomy L3-S1, with bilateral foraminotomy Hospital course: un eventful, intra operative dural tear, repaired " Please clarify the following based on the above: A diagnosis of _Dura tear___, is documented and the patient underwent __ Decompressive laminectomy, discetomy L3-S1, with bilateral foraminotomy procedure. Please specify if the above mentioned diagnosis is; Please state your response below and also document the same in your Progress Notes and/or Discharge Summary and indicate if the condition was present on admission. PHYSICIAN RESPONSE: [ ] Clinically insignificant (Not requiring additional clinical evaluation, diagnostic procedures, nursing time, therapeutic treatment or increased length of stay) [ ] Clinically significant (Leads to a significant clinical event, responsible for an additional significant procedure or other unforeseen or not routinely expected conditions( Please check all that apply) [ ] A complication of the procedure [ ] Integral or inherent to the procedure, thus not a complication [ ] Not a complication of procedure [ ] A complication of the procedure [ ] Other, please specify; [ ] Cannot be clinically determined (POA-W) [ ] Comment/Explanation: Present on Admission: [ ] Yes (Y) [ ] Clinically undeterminable (W) [ ] No (N) Please also document response in your Progress Notes and/or Discharge Summary and indicate if the condition was present on admission. JENNIFFERD
== END 2017-03-24 10:53 | disposition home or self-care (01) | DRG 516 ==
LOC: 3A 06:40 → 2B-SURG 10:31
PROVIDERS: ADMIT Orthopaedic Surgery; ATTEND Orthopaedic Surgery
PROC: 01NB0ZZ Release Lumbar Nerve, Open Approach (ICD-10-PCS; principal; 2017-03-21)
PROC: 3E0R3GC Introduction of Other Therapeutic Substance into Spinal Canal, Percutaneous Approach (ICD-10-PCS; 2017-03-22)
DX: M48.06 Spinal stenosis, lumbar region (principal); E44.0 Moderate protein-calorie malnutrition; G96.0 Cerebrospinal fluid leak; E66.9 Obesity, unspecified; J45.909 Unspecified asthma, uncomplicated; I10 Essential (primary) hypertension; E11.9 Type 2 diabetes mellitus without complications; Z68.32 Body mass index [BMI] 32.0-32.9, adult; Z87.891 Personal history of nicotine dependence; Z86.73 Personal history of transient ischemic attack (TIA), and cerebral infarction without residual deficits; Z82.49 Family history of ischemic heart disease and other diseases of the circulatory system; Z83.3 Family history of diabetes mellitus; Z88.1 Allergy status to other antibiotic agents; Z88.5 Allergy status to narcotic agent; Z79.899 Other long term (current) drug therapy
CPT/HCPCS: 36415; 72020; 80048; 80053; 82962; 85025; 85027; 86850; 86900; 86901; 88304; 88311; A4649; G8978-GP; G8979-GP; J0690; J1030; J1100; J1170; J1885; J2250; J2270; J2370; J2405; J2704; J2710; J3010; J7030